=== PATIENT | female | born 2000 | race Caucasian/White ===

== ENCOUNTER → 2020-08-02 | Outpatient (CLI) | payer OTHER ==
[~2020-08-02] MED LIST: ANAPROX DS550 MG PO; PERCOCET 5/325 T1 EA PO; VITAMIN D PO; ZOFRAN ODT 4 MG4 MG GT
== END ==
LOC: LAB 16:23
DX: O00.90 Unspecified ectopic pregnancy without intrauterine pregnancy (principal)
CPT/HCPCS: 36415; 84702

== ENCOUNTER → 2020-08-04 | Day surgery (SDC) | payer OTHER ==
[2020-08-04 10:43] LABS: HEMOGLOBIN 11.9 gm/dl (12.3-15.3); RED BLOOD COUNT 4.38 M/UL (4.00-5.10); WHITE BLOOD COUNT 11.3 K/UL (4.5-11.0)
== END | disposition home or self-care (01) ==
LOC: OR 10:08
PROVIDERS: Obstetrics & Gynecology
PROC: 0UT64ZZ Resection of Left Fallopian Tube, Percutaneous Endoscopic Approach (ICD-10-PCS; 2020-08-04)
PROC: 10T24ZZ Resection of Products of Conception, Ectopic, Percutaneous Endoscopic Approach (ICD-10-PCS; principal; 2020-08-04 13:15)
DX: O00.102 Left tubal pregnancy without intrauterine pregnancy (principal); E66.9 Obesity, unspecified; Z68.36 Body mass index [BMI] 36.0-36.9, adult; Z20.822 Contact with and (suspected) exposure to COVID-19; Z88.0 Allergy status to penicillin; Z88.8 Allergy status to other drugs, medicaments and biological substances; Z87.891 Personal history of nicotine dependence
CPT/HCPCS: 36415; 81001; 85025; 87635; J0690; J1885; J2001; J2250; J2405; J2704; J2710; J2795; J3010; J7120

== ENCOUNTER 2021-04-20 15:35 | Emergency (ER) | payer OTHER ==
[2021-04-20 16:06] LABS: HEMOGLOBIN 12.9 gm/dl (12.3-15.3); RED BLOOD COUNT 4.77 M/UL (4.00-5.10)
[2021-04-20] MEDS ORDERED: MACROBID 100 M100 M1 PO (17:15)
== END 2021-04-20 17:39 | disposition home or self-care (01) ==
LOC: ER1 15:35
PROVIDERS: Nurse Practitioner
DX: N93.9 Abnormal uterine and vaginal bleeding, unspecified (principal); N39.0 Urinary tract infection, site not specified; Z88.1 Allergy status to other antibiotic agents; Z88.0 Allergy status to penicillin
CPT/HCPCS: 81001; 84702; 85025; 86900; 86901; 87086; 99284